=== PATIENT | male | born 1995 | race Hispanic/Latino ===

== ENCOUNTER 2021-10-11 19:19 | Emergency (ER) | payer OTHER, SELFPAY ==
[2021-10-11 20:23] LABS: ALT (SGPT) 44 U/L (8-55); AST (SGOT) 22 U/L (5-34); Albumin 4.2 g/dL (3.5-5.0); Alkaline Phosphatase 112 U/L (40-110); Anion Gap 13 mmol/L (10-20); BUN (Urea Nitrogen) 11 mg/dL (8.9-20.6); Bilirubin, Total 0.8 mg/dL (0.2-1.2); Calc. Creatinine Clearance 0 mL/min (70-130); Calcium 9.3 mg/dL (7.8-10.44); Carbon Dioxide 24 mmol/L (22-29); Chloride 103 mmol/L (98-107); Estimated GFR 120; Globulin 3.3 g/dL (2.4-3.5); Glucose 105 mg/dL (70-105); Lipase 12 U/L (8-78); Magnesium 1.9 mg/dL (1.6-2.6); Potassium 3.6 mmol/L (3.5-5.1); Protein, Total 7.5 g/dL (6.0-8.3); Sodium 136 mmol/L (136-145)
[2021-10-11 20:36] LABS: Bilirubin Neg (Negative); Blood, Urine 50 (Negative); Clarity Clear (Clear); Glucose, Urine (Dipstick) Normal (Negative); Ketone, Urine 50 mg/dL (Negative); Leukocyte Negative (Negative); Nitrite Negative (Negative); Protein, Urine (Dipstick) 30 mg/dl (Neg-Trace)
[2021-10-11] MEDS ORDERED: Metoclopramide HCl 10 MG/2 ML VIAL ONE (20:42)
[2021-10-11] MEDS ORDERED: diphenhydrAMINE 50 MG/ML VIAL ONE (20:43)
[2021-10-11] MEDS ORDERED: Ketorolac Tromethamine 30 MG/ML VIAL ONE (20:43)
[2021-10-11 21:04] LABS: Bacteria/HPF None Seen HPF (None Seen); Squamous Epithelial 0-3 HPF (0-3); WBC/HPF 0-3 HPF (0-3)
[2021-10-11 21:34] LABS: SARS-CoV-2 NAA Rapid Test Not Detected (NotDetected)
== END 2021-10-11 21:54 | disposition home or self-care (01) ==
LOC: CSHERS 19:19
DX: R51.9 Headache, unspecified (principal); Z20.822 Contact with and (suspected) exposure to COVID-19; I10 Essential (primary) hypertension
CPT/HCPCS: 70450; 80053; 81003; 81015; 83690; 83735; 83880; 84484; 96361; 96374; 96375; J1200; J1885; J2765

== ENCOUNTER 2024-04-13 04:16 | Emergency (ER) | payer OTHER, SELFPAY ==
[2024-04-13] MEDS ORDERED: Ondansetron ODT 4 MG TAB ONE (04:23)
[2024-04-13] MEDS ORDERED: Acetaminophen 325 MG TAB ONE (04:28)
[2024-04-13 04:52] LABS: Bilirubin Neg (Negative); Blood, Urine 50 (Negative); Clarity Clear (Clear); Glucose, Urine (Dipstick) Normal (Negative); Ketone, Urine Negative (Negative); Leukocyte Negative (Negative); Nitrite Negative (Negative); Protein, Urine (Dipstick) 15 mg/dl (Neg-Trace); Specific Gravity, Urine 1.025 (1.005-1.030); Urobilinogen Normal mg/dL (Less than 2)
[2024-04-13 05:01] LABS: Bacteria/HPF Rare-Few HPF (None Seen); CAUTI Indications for Culture Fever or rigors; Squamous Epithelial 0-3 HPF (0-3); WBC/HPF 0-3 HPF (0-3)
[2024-04-13 05:02] LABS: Mucous/LPF 1+ LPF (<2+)
[2024-04-13 05:03] LABS: Urine Culture Reflex No No
[2024-04-13] MEDS ORDERED: Promethazine 25 MG TAB ONE (05:09)
== END 2024-04-13 05:18 | disposition home or self-care (01) ==
LOC: CSHERS 04:16
DX: A09 Infectious gastroenteritis and colitis, unspecified (principal); R11.2 Nausea with vomiting, unspecified
CPT/HCPCS: 74176; 81001; Q0162; Q0169